=== PATIENT | female | born 1945 | race Caucasian/White ===

== ENCOUNTER 2016-12-03 08:04 | Inpatient (IN) | payer MEDICARE, OTHER ==
[2016-12-03] VITALS (13 sets, daily range): BP systolic 115–135; BP diastolic 65–83; PULSE 54–85; RESP 11–20; O2SAT 92–99
[~2016-12-03] VITALS: Ht 160 cm; Wt 75.3 kg
[2016-12-03] MEDS: Lactated Ringer's 1,000 ML IV SCH ×2 (05:00→10:12)
[~2016-12-03 08:04] MED LIST: CeFAZolin 2 Gm/50 mL D5W IV Premix IV ONE; HYDR12.5 PO; LISI-567 PO; METF1000 PO
--- NOTE | 2016-12-03 09:56 | PCM.HPANE ---
Patient Data Date of Service: Dec 03, 2016 Surgeon Admitting Provider: Attending Provider:Jen Sol MD Primary Care Physician:Aaron Pugh MD Other Provider:Luca Leary Anesthesia Reason for Visit Interstitial Pulmonary Disease Ht/WT & BMI Height (Feet): 5 Height (Inches): 3 Weight (Kilograms): 75.3 Body Mass Index 29.00 Allergies Coded Allergies: codeine (Verified Allergy, Unknown, nausea, vomiting, 11/28/16) Past Anesthesia History Anesthesia History: Denies:: Abnormal Airway, Anesthesia Reactions, Difficult Intubation, Fam Anesthesia Reaction Diabetes History Hx Diabetes?: Yes Type of Diabetes: Type II Glycemic Control: Oral Medication Current Bedside Blood Glucose: 87 MRSA MRSA: No Medications Hypertension Medication: Yes Home Meds Incl Beta Karla: No Reported Medications Metformin (Glucophage)1,000 Mg Tablet1,000 Mg PO BID Ref 0 11/28/16 Lisinopril 20 Mg [id number] Mg PO DAILY 30 Days Ref 0 11/28/16 Hydrochlorothiazide 12.5 Mg Zhjzgbk76.5 Mg PO DAILY 30 Days Ref 0 11/28/16 Discontinued Reported Medications Lisinopril 20 Mg Abvzxy12 Mg PO DAILY 30 Days Ref 0 02/06/16 Hydrochlorothiazide 12.5 Mg [id number] Mg PO DAILY 30 Days Ref 0 02/06/16 Metformin (Glucophage)1,000 Mg Tablet1,000 Mg PO BID Ref 0 02/06/16 Discontinued Scripts oxyCODONE-Acetaminophen 5-325 mg 1 Each Tablet1-2 Tab PO Q4H PRN For Severe Pain #30 TABLET Prov:Jen Sol MD 02/07/16 History History of ENT Problems?: No HEENT History: Denies:: Abnormal Airway Cataracts Difficult Intubation Dysphagia Glaucoma Hearing Problem Sinus Problem TMJ Hx of Heart Problems?: Yes Cardiovascular History: Positive for:: Hypertension Denies:: Cardiac Surgery Chest Pain Congestive Heart Failure Edema Heart Murmur Irregular Heartbeat Pacemaker Thrombophlebitis Hx of Respiratory Problem?: Yes Respiratory History: Positive for:: Pneumonia (recent hx spring 2015) Denies:: Asthma COPD Chest Surgery Dyspnea Emphysema Hemoptysis Tuberculosis Use of C-PAP Machine Use of Inhalers / NEBS Other Resp Pertinent History: interstitial pulmonary disease current admission problem Hx Neurologic Problems?: No Neurological History: Denies:: Alzheimer's Disease CVA Dementia Dizziness Headaches Multiple Sclerosis Parkinson's Disease Seizures Hx of GI Problems?: Yes Gastrointestinal History: Positive for:: Diverticulitis (hx of spring 2015) Gall Bladder Disease (removed ) Denies:: Gastroesphageal Reflux Gastrointestinal Bleeding Heartburn Hepatitis Hiatal Hernia Rectal Bleeding Hx of Problems?: No Genitourinary History: Denies:: HX of Hemodialysis Kidney Stones Urinary Tract Infection HX of Peritoneal Dialysis: No Female Hx: Denies:: Currently (post menopausal ) Endometriosis Pelvic Inflammatory Problems with Breasts? Skin History: Denies:: History Skin Disorders? Pressure Ulcers Hx Musculoskeletal Problems?: Yes Musculoskeletal History: Positive for:: Osteoarthritis (comes and goes ) Denies:: Back Injury Fibromyalgia Joint Replacement Musculoskeletal Trauma Myasthenia Gravis Hx of Psycho/Social Problems?: No Psycho Social History: Denies:: Anxiety Bipolar Disorder Hx Depression Suicide Attempt Hx Surgeries?: Yes (gallbladder) Hx Any Other Health Problems?: Yes Other History: Positive for:: Hospitalization (for gallbladder 5 years ago) Denies:: Cancer (pre cancerous cervix ) Thyroid Disease History Blood Transfusions: Positive for:: Accept Blood Products? Denies:: Blood Transfusions Hx Diabetes: YesBedside Blood Glucose: 87 Hx Alcohol Use: YesAlcoholic Drinks Per Day: 2 drinks weeklyHx Substance Use: No Smoking Status: Former Smoker Have You Smoked inLast 12 mo: No Stop/Bang S-Snoring: Do You Snore Loudly: Yes T-Tired: feel tired, fatigued: Yes O-Obsered: Observed not breath: No P-Blood Pressure: treated: Yes B- Body Mass Index > 35 kg/m2: No A- Age over 50: Yes N- Neck Large Circumference: No G- Gender Male: No YARA Total Score: 4 Risk Assessment Category Category 1A: Patient has history of documented sleep apnea, and HAS NOT received any narcotic, sedative or anesthesia administration during this stay. Category 1B: Patient has history of documented sleep apnea, and HAS received any narcotic , sedative or anesthesia administration during this stay Category 2: Patient has SUSPECTED Obstructive Sleep Apnea, and HAS received any narcotic , sedative or anesthesia administration during this stay. Category 3: Patient has SUSPECTED Obstructive Sleep Apnea and HAS NOT received narcotic, sedative or anesthesia administration during this stay. Category 4: Outpatient in Procedural Areas with known sleep apnea or who screen positive for High Risk via the STOP/BANG questionnaire. Exam Exam Vital Signs Vital Signs Date Time Temp Pulse Resp B/P Pulse Ox O2 Delivery O2 Flow Rate FiO2 12/03/16 08:42 36.1 55 16 131/83 95 Room Air General Appearance: Alert, Oriented X3, Cooperative, No Acute Distress HEENT/AIRWAY: MP 2 Lungs: Clear to Auscultation, Normal Air Movement Heart: Exam Unremarkable, Regular Rate/Rhythm, Murmur (I/ systolic at LUSB) Meds/Labs/Diagnostics Bedside Blood Glucose: 87 Plan Impression Patient chart reviewed, patient interviewed and anesthestic plan with risks, benefits, and alternatives discussed, and informed consent obtained. NPO Status: 1/3 ASA Physical Status: ASA2 Mod Systemic Disease Anesthetic Support Modalities: Arterial Line Anesthetic Plan: GA Bene/Risks/Altern/Consents: Yes HP Complete Prior to Induction: Yes Valdez Montoya MD Dec 03, 2016 09:56
[2016-12-03] MEDS ORDERED: Bupivacaine-MPF 0.5% W/EPI 30 mL Inj INFILTRATE ONE (10:12)
[2016-12-03] MEDS ORDERED: Lactated Ringer's 1,000 ML IV SCH (11:33)
[2016-12-03] MEDS ORDERED: Lactated Ringer's 500 ML IV PRN (11:33)
[2016-12-03] MEDS ORDERED: HYDROmorphone 1 mg/mL Inj IVPUSH PRN (11:35)
[2016-12-03] MEDS ORDERED: hydrALAZINE 20 mg/mL Inj IVPUSH PRN (11:35)
[2016-12-03] MEDS ORDERED: MetoCLOpramide 5 mg/mL 2 mL Inj IVPUSH PRN ×2 (11:35→12:05)
[2016-12-03] MEDS ORDERED: EPHEDrine Sulfate 50 mg/mL Inj IVPUSH PRN (11:35)
[2016-12-03] MEDS ORDERED: Bupivacaine Liposome 1.3% 20 mL Inj ONE (11:35)
[2016-12-03] MEDS ORDERED: Atropine 0.4 mg/mL Inj IVPUSH PRN (11:35)
[2016-12-03] MEDS ORDERED: Phenylephrine 10,000 mCg/mL Inj IVPUSH PRN (11:35)
[2016-12-03] MEDS ORDERED: Ondansetron 2 mg/mL 2 mL Inj IVPUSH PRN ×2 (11:35→12:05)
[2016-12-03] MEDS ORDERED: Labetalol 5 mg/mL 4 mL Inj IV PRN (11:35)
[2016-12-03] MEDS ORDERED: Sodium Chloride LOK Flush 10 mL Syringe IVFLUSH PRN (12:05)
[2016-12-03] MEDS: Acetaminophen IV 1,000 MG in IV Premix 1 EACH IV SCH ×2 (12:05→18:05)
[2016-12-03] MEDS: Dextrose 5% Lactated Ringer's 1,000 ML IV SCH ×2 (12:05→15:57)
--- NOTE | 2016-12-03 12:06 | PCM.ANEP1 ---
Post Anesthesia Phase 1 PACU Phase 1 Assessment Date of Service: Dec 03, 2016 Vital Signs 35.9 118/58 60 11 97% FM Anesthetic Administered: GA Level of Alertness: Sleeping, hard to arouse REYES's with Equal Strength: Yes Pain: No Nausea or Vomiting: No Oxygen Delivery: Simple Mask Lungs: Clear to Auscultation, Normal Air Movement Valdez Montoya MD Dec 03, 2016 12:06
--- NOTE | 2016-12-03 12:13 | PCM.SURGOP ---
Surgical Operative Report Date of Service: Dec 03, 2016 Pre Operative Diagnosis Interstitial lung disease Post Operative Diagnosis Interstitial lung disease Procedure: Thoracoscopic right pulmonary biopsies of the right upper, middle, and lower lobes of the lung. Surgeon and [employer] Haz[employer] Tanker Driver: Surgeon: Jen Sol M.D. 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 She was seen by her chrome plater helper, Dr. Valdez, who recommended thoracoscopic biopsies for diagnostic purposes. Findings: A single biopsy of each lobe of the right lung was performed, each was approximately 1 cm x 2 cm in size. No pulmonary focal abnormalities were visualized during the procedure. Procedure Details The patient was brought to the operating room and placed in supine position. An arterial line was placed. A double-lumen endotracheal tube was placed. He was repositioned in left lateral decubitus position with a beanbag and all pressure points appropriately padded. Antibiotics were infused. SCDs and a warming blanket were placed. The operative field was prepped and draped in sterile fashion. A pause was performed to confirm the correct patient, procedure, site, and side. Access to the chest was performed through an 11 mm incision at the level of the inframammary crease at the midaxillary line. An 11 mm port was inserted. Two additional ports were placed. The first was at approximately the 9th interspace at the anterior axillary line, and the 3rd was the most posterior at approximately the 9th intercostal space as well. The right middle lobe was grasped and a 3.8 mm endoscopic stapler was fired with a SeamGuard. The specimen was 2 x1 cm in size. The process was repeated on the right upper lobe, which required two firings of the stapler, producing a 2 cm x 1 cm specimen. Finally, the right lower lobe was grasped and the stapler was fired to produce a specimen that was also 2 cm x 1 cm. Hemostasis was confirmed visually. 0.5% marcaine was injected at all port sites in the intercostal space and skin; Liposomal bupivacaine 20 mL was theninjected, distributing it between the three rib spaces for three port sites for postoperative analgesia. A chest tube was placed, entering at the most anterior port site, and proceeding toward the posterior aspect of the thoracic cavity to the apex. It was sutured into position and the right lung was reinflated. The port sites were closed in two layers using 3-0 Vicryl for the muscle and subcutaneous tissue and 4-0 Monocryl for the skin. The chest tube stitch was placed, including a 2-0 Ethibond and a 2-0 nylon. Sterile dressings were then placed and the patient was awakened and taken to the postoperative care unit in good condition. Complications There were no periprocedural complications identified. Surgical Specimen Removed: Yes Specimen sent to Pathology: Yes Surgical Specimen description: Portion of the right upper, middle, and lower lobe of the lung. Anesthetic Plan: GA Grafts, Implants: None Output, Estimated Blood Loss: 2 (ml) Blood Administration during [place]: No Jen Sol MD Dec 03, 2016 12:13
[2016-12-03] MEDS: fentaNYL-PF 50 mCg/mL 2 mL Inj IVPUSH PRN ×2 (12:25→12:30)
[2016-12-03 12:38] LABS: Mean Corpuscular Hemoglobin 27.3 pg (27.0-35.0); Mean Corpuscular Volume 87.2 fL (81-100)
--- NOTE | 2016-12-03 13:08 | DRSVH ---
PROCEDURE: X-RAY CHEST ONE VIEW, PORTABLE ([id number]) INDICATIONS: 71 year-old female status post vacuum assisted thoracoscopic surgery with lung biopsy an d chest tube placement. TECHNIQUE: One view of the chest was acquired. COMPARISON: [facility], CT, CT CHEST WO CON, 10/21/2016, 16:39. [facility], CR, XR CHEST 2VW, 08/26/2016, 16:47. [facility], CR, XR CHEST 2VW, 02/20/2016, 16:38. [facility], CR, CHEST 1VW (PORTABLE), 01/04/2007, 2:39. FINDINGS: Surgical changes and devices: New right apical pleural drain is present and in expected position. Pat ient is status post cholecystectomy. Lungs and pleura: No pleural effusions or pneumothorax. Bibasilar airspace opacities persist. Mediastinum: Mediastinal contours appear normal. Heart size is normal. Bones and chest wall: No suspicious bony lesions. Overlying soft tissues appear unremarkable. IMPRESSION: 1. Right apical chest tube is in expected position; no pneumothorax. 2. Persistent bibasilar airspace opacities may be consistent with bronchopneumonia. Dictated by: Miki Stevens M.D. on 12/03/2016 at 13:07 Approved by: Miki Stevens M.D. on 12/03/2016 at 13:07
[2016-12-03] MEDS ORDERED: EPHEDrine/NS 5 mg/mL 5 mL Syringe ONE (13:33)
[2016-12-03] MEDS ORDERED: Dexamethasone 4 mg/mL Inj ONE (13:33)
[2016-12-03] MEDS ORDERED: Ondansetron 2 mg/mL 2 mL Inj ONE (13:33)
[2016-12-03] MEDS ORDERED: Propofol 10,000 mCg/mL 20 mL Inj ONE (13:33)
[2016-12-03] MEDS ORDERED: fentaNYL-PF 50 mCg/mL 2 mL Inj ONE (13:33)
[2016-12-03] MEDS ORDERED: Lidocaine 4% 4 mL Laryng-O-Jet Top Soln ONE (13:33)
[2016-12-03] MEDS ORDERED: Glycopyrrolate 0.2 mg/mL 5 mL Inj ONE (13:33)
[2016-12-03] MEDS ORDERED: Phenylephrine/NS 100 mCg/mL 10 mL Syringe IVPUSH ONE (13:33)
[2016-12-03] MEDS ORDERED: Neostigmine 1 mg/mL 5 mL Inj ONE (13:33)
--- NOTE | 2016-12-03 14:27 | PCM.ANEP2 ---
Post Anesthesia Evaluation ASA/CMS Post Anesthesia Date of Service: Dec 03, 2016 VS in Patient's Normal Range?: Yes Resp Stable; Airway Patent?: Yes CV Function & Hydration Stable: Yes Mental Status Recovered?: Yes Pain control Satisfactory?: Yes N/V Control Satisfactory?: Yes Valdez Montoya MD Dec 03, 2016 14:27
[2016-12-03] MEDS: oxyCODONE-Acetamin 5-325 mg Tablet PO PRN ×2 (15:18→21:14)
[2016-12-03] MEDS: Heparin 5,000 Unit/mL Inj SUBQ SCH (17:24)
--- NOTE | 2016-12-03 19:02 | NUR ---
POST OP ADMIT Patient arrived to unit at 1340, via gurney, able to scoot into bed with minimal assistance. transported by Johana LEAL, Report taken by phone by Min LEAL. Main focus has been pain management. Positional changes in addition to medications have been effective.Tolerated clear liquids, full liquids and now on general diet.
--- NOTE | 2016-12-03 22:00 | NUR ---
Case Management: COS to Inpatient. IMM explained to patient at 0, signed copy in chart, copy given to patient. All questions answered. Julienne Bond RN
[2016-12-04] MEDS: Dextrose 5% Lactated Ringer's 1,000 ML IV SCH ×2 (00:35→13:05)
[2016-12-04] MEDS: Heparin 5,000 Unit/mL Inj SUBQ SCH ×3 (00:42→16:22)
[2016-12-04] MEDS: oxyCODONE-Acetamin 5-325 mg Tablet PO PRN ×4 (00:52→14:33)
--- NOTE | 2016-12-04 02:45 | NUR ---
Pain pt has pain in her chest when she breathes that she rates a 7/10. she has been taking PO percocet for her pain and it reduces it to a 4-5/10 which she says is tolerable. she knows she has IV morphine available for breakthrough pain but has denied the need for it. pt has been encouraged to cough and deep breathe as well as use her incentive spirometer. she is reluctant to perform pulmonary toileting exercises due to pain. continual encouragement is needed. pt was unable to ambulate in the hallway. she said just getting up to the [facility] was much more painful then she imagined it would be. will attempt to encourage ambulation again this AM. hourly rounding continues. Addendum: 12/04/16 at 0703 by SKIP BEAUCHAMP RN pt reports feeling much improved this AM. she was able to get out of bed without assistance and ambulate to the bathroom. steady on her feet and she did not become SOB while off the oxygen. she states that she feels up to ambulating in the hallways today. care continues.
[2016-12-04 06:14] VITALS: BP 118/74; PULSE 51; RESP 17; O2SAT 100
[2016-12-04 07:38] LABS: Mean Corpuscular Hemoglobin 28.4 pg (27.0-35.0); Mean Corpuscular Volume 87.5 fL (81-100)
[2016-12-04] MEDS ORDERED: POLY17PO6 PO (08:28)
[2016-12-04] MEDS ORDERED: OXYC1TAB24 PO (08:28)
[2016-12-04] MEDS: Polyethylene Glycol (PEG) 17 Gm Powder PO SCH (08:30)
--- NOTE | 2016-12-04 09:18 | PCM.PNSURG ---
Subjective Visit Information: Reason for Visit Interstitial Pulmonary Disease Surgery/Surgery Date LUNG BIOPSY/ RIGHT VATS 12/03/16 Post-Op Day # Date of Admission: Dec 03, 2016 at 13:32 Hospital Day # Subjective: CXR shows a well expanded lung this am. Chest tube had a total of 140mL of serosanguinous fluid out since surgery. No air leak. She is smiling and eating a regular breakfast. Objective Vital Sign- Last 8 Hours Date Time Temp Pulse Resp B/P Pulse Ox O2 Delivery O2 Flow Rate FiO2 12/04/16 06:14 36.4 51 17 118/74 100 Nasal Cannula 2.00 Intake and Output- Last 8 Hour 12/04/16 Cumulative From/Thru 07:00 11/28/16 08:16 - 12/04/16 06:42 Intake Total 1795 ml 2645 ml Output Total 400 ml 727 ml Balance 1395 ml 1918 ml Intake Oral 800 ml 850 ml IV Total 995 ml 1795 ml Output Urine Total 400 ml 650 ml Chest Tube Drainage Total 75 ml Estimated Blood Loss 2 ml General: Alert, Oriented X3, No Acute Distress Lungs: Other (clear on L, soft crackles on R) Result Diagram: 12/04/16 0715 12/04/16 0715 Assessment & Plan Impression 71yof with interstitial lung disease POD#1 thoracoscopic wedge biopsies of the R lung. No air leak, minimal fluid in chest tube, CXR without PTX. Problems: Plan Water seal chest tube today at 0800 CXR at noon, possible discontinuation of tube Likely discharge to home later this afternoon. Jen Sol MD Dec 04, 2016 09:18
[2016-12-04 09:32] VITALS: BP 137/65; PULSE 65; RESP 16; O2SAT 94
--- NOTE | 2016-12-04 09:38 | DRSVH ---
PROCEDURE: X-RAY CHEST ONE VIEW ([id number]) INDICATIONS: CHEST TUBE TECHNIQUE: One view of the chest was acquired. COMPARISON: [facility], CR, XR CHEST 1VW (PORTABLE), 12/03/2016, 12:20. FINDINGS: Surgical changes and devices: Right chest tube is stable. Lungs and pleura: There is a persistent appearance of bilateral opacities, minimally improved in the left base. No visualized pneumothorax. Mediastinum: Mediastinal contours appear normal. Heart size is normal. Bones and chest wall: No suspicious bony lesions. Overlying soft tissues appear unremarkable. IMPRESSION: Bibasilar opacities, appearing slightly improved as above. No pneumothorax. Dictated by: Bertha Renodn M.D. on 12/04/2016 at 9:27 Approved by: Bertha Rendon M.D. on 12/04/2016 at 9:27
[2016-12-04] MEDS ORDERED: Bacitracin Zinc 15 Gm Ointment TOPICAL SCH (12:40)
[2016-12-04 13:15] VITALS: BP 124/73; PULSE 64; RESP 18; O2SAT 91
--- NOTE | 2016-12-04 13:54 | PCM.PROC ---
Procedure Note Date of Service: Dec 04, 2016 Pre Procedure Diagnosis: Interstitial lung disease Post Procedure Diagnosis: Same Procedure: Right Chest tube removal Provider and Junk Dealer: Ama Louise Indication for Procedure: Decreased drainage, No PTX Findings: NONE Procedural Analgesia: NONE Procedure Details: Procedure explained to patient. Patient took deep breath and coughed, no A/L in Pleurovac. Patient was placed in left side lying position. Dressing taken down. [place] stitch cut. Patient took deep breath and on sustained inspiration CT pulled. CT stitch tied, bacitracin and 4 X 4 placed on site. Secured with 2" plastic tape. No complications. Tolerated well Specimen: NONE Post Procedure Plan: Per Dr. Ebenezer Louise,Ama Monique PA-C Dec 04, 2016 13:54
--- NOTE | 2016-12-04 15:17 | DRSVH ---
PROCEDURE: X-RAY CHEST ONE VIEW ([id number]) INDICATIONS: chest tube on ws TECHNIQUE: One view of the chest was acquired. COMPARISON: [facility], CR, XR CHEST 1VW, 12/04/2016, 5:18. FINDINGS: Surgical changes and devices: Right-sided chest tube is present. Lungs and pleura: Bilateral interstitial opacities are prominent within the bases without interval ch ramirez compared to prior exam. No pneumothorax. Mediastinum: Mediastinal contours appear normal. Heart size is normal. Bones and chest wall: No suspicious bony lesions. Overlying soft tissues appear unremarkable. IMPRESSION: Stable interval exam compared to 12/04/16 at 5:18 AM. Dictated by: Bertha Rendon M.D. on 12/04/2016 at 15:15 Approved by: Bertha Rendon M.D. on 12/04/2016 at 15:15
--- NOTE | 2016-12-04 18:24 | NUR ---
PAIN Chest tube removed this shift, patient tolerated well. Pain managed with Percocet x2 tabs, morphine used for breakthrough pain. Ambulated with aide, 2 "laps" around unit. Tolerating general diet. Encouraged fluids throughout shift.
[2016-12-04 19:47] VITALS: BP 107/66; PULSE 57; RESP 18; O2SAT 95
[2016-12-05] MEDS: oxyCODONE-Acetamin 5-325 mg Tablet PO PRN ×2 (00:07→10:34)
[2016-12-05] MEDS: Heparin 5,000 Unit/mL Inj SUBQ SCH ×2 (00:11→09:01)
[2016-12-05] MEDS: Dextrose 5% Lactated Ringer's 1,000 ML IV SCH (01:35)
--- NOTE | 2016-12-05 03:53 | NUR ---
pain pt taking 2 percocet for pain and still requiring IV morphine for breakthrough pain. ambulating to the bathroom independently, minimally SOB with exertion. dressing at prior chest tube site has dried serous-sanguineous blood but no new leakage from this shift. care continues.
[2016-12-05 04:46] VITALS: BP 157/79; PULSE 67; RESP 16; O2SAT 94
[2016-12-05] MEDS: Polyethylene Glycol (PEG) 17 Gm Powder PO SCH (08:30)
--- NOTE | 2016-12-05 08:33 | PCM.DISURG ---
Surgical Discharge Instruction Date of Service Dec 05, 2016 Dates of Hospitalization Date of Hospital Admission Dec 03, 2016 at 13:32 Providers Admitting Physician: Jen Sol MD Primary Care Physician: Aaron Pugh MD Attending Physician: Jen Sol MD Discharge Diagnosis Post Operative diagnosis Interstitial lung disease Diet Discharge Diet: No restrictions Activity Discharge Activity-General: Be up and about, Other (Activity as tolerated.) Dressing and Incisional Care Dressing Care: Allow Steri Stripes to fall off, Remove outer dressing after 24 hrs Hygiene: May shower, DO NOT soak incision under water Additional Instructions Discharge Instructions You may take ibuprofen up to 600mg every 6 hours for pain in addition to oxycodone. Take a laxative with oxycodone to avoid constipation. Follow Up Plan Follow Up Plan F/U with Dr. Sol in 2 weeks. Jen Sol MD Dec 05, 2016 08:33
--- NOTE | 2016-12-05 09:04 | DRSVH ---
PROCEDURE: X-RAY CHEST ONE VIEW ([id number]) INDICATIONS: chest tube removal TECHNIQUE: One view of the chest was acquired. COMPARISON: 12/04/[id number] hrs. FINDINGS: Surgical changes and devices: Right-sided pleural drain has been removed. Small amount of subcutaneou s emphysema. Cholecystectomy clips. Lungs and pleura: No pleural effusions or pneumothorax. Irregular rounded radiodensity is present in the right midlung field. Bilateral lower lobe atelectasis/infiltrate appears slightly improved on th e right, unchanged on the left. Mediastinum: Mediastinal contours appear normal. Heart size is normal. Bones and chest wall: No suspicious bony lesions. Overlying soft tissues appear unremarkable. IMPRESSION: 1. Focal density in the right midlung field above the minor fissure, possible rounded atelectasis. 2. Bibasilar left greater than right atelectasis/infiltrate, slight interval improvement. 3. Interval removal of right sided chest tube. No apparent pneumothorax. Dictated by: Al Wayne M.D. on 12/05/2016 at 9:02 Approved by: Al Wayne M.D. on 12/05/2016 at 9:02
--- NOTE | 2016-12-05 10:44 | NUR ---
Discharge Patient DC to home with family friend. All DC education and instructions given to patient at time of DC. Prescriptions given at time of DC.
--- NOTE | 2016-12-05 11:44 | PCM.DC.SUR ---
Discharge Summary Date of Service: Date of Hospital Admission: Dec 03, 2016 at 13:32 Date of Operation(s): 12/03/2016 Date of Discharge: 12/05/2016 Diagnosis at Time of Discharge Primary diagnosis: Interstitial lung disease Other diagnoses: 1. Pneumonitis 2. Diverticulitis 3. Hypertension 4. 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 She was seen by her c4 planner, Dr. Valdez, who recommended thoracoscopic biopsies for diagnostic purposes. Consultants: None Hospital Course: The patient was admitted and underwent the above-mentioned operation without complication. Chest tube was able to be removed the following day. The patient was stable for discharge on her second postsurgical day. Pathology: Pending Disposition: The patient was discharged on her second postsurgical day. Follow-up Plan: She will follow-up in the office with Dr. Sol in 2 weeks. Hydrochlorothiazide (Hydrochlorothiazide) 12.5 Mg Capsule 12.5 MG PO DAILY ( Reported) Lisinopril (Lisinopril) 20 Mg Tablet 20 MG PO DAILY (Reported) Metformin (Glucophage) 1,000 Mg Tablet 1,000 MG PO BID (Reported) Polyethylene Glycol 3350 (Miralax) 17 Gm Powd.pack 17 GM PO DAILY PRN PRN For Constipation oxyCODONE-Acetaminophen 5-325 mg (oxyCODONE-Acetaminophen 5-325 mg) 1 Each Tablet 1-2 TAB PO Q4H PRN PRN For Severe Pain copies to: Aaron Pugh MD; Yun Valdez MD, Fred H PA-C Dec 05, 2016 11:44
--- NOTE | 2016-12-05 14:53 | PATH ---
SURGICAL PATHOLOGY Attending Physician:Jen Sol MD CASE STATUS: Signed Out PATIENT NAME: YNES RAO PID: [id number] : 1945 DATE COLLECTED:12/03/2016 19:32 SPECIMEN: 1: Lung, Wedge Biopsy 2: Lung, Wedge Biopsy 3: Lung, Wedge Biopsy CLINICAL HISTORY: INTERSTITIAL LUNG DISEASE 1). RIGHT MIDDLE LOBE, OUT 11:28 FORMALIN 11:29 2). RIGHT UPPER LOBE, OUT 11:30 FORMALIN 11:30 3). RIGHT LOWER LOBE, OUT 11:33 FORMALIN 11:34 FINAL DIAGNOSIS: 1.RIGHT MIDDLE LOBE LUNG, WEDGE BIOPSY: INTERSTITIAL PNEUMONIA, SEE COMMENT. 2.RIGHT UPPER LOBE LUNG, WEDGE BIOPSY: INTERSTITIAL PNEUMONIA, SEE COMMENT. 3.RIGHT LOWER LOBE LUNG, WEDGE BIOPSY: INTERSTITIAL PNEUMONIA, SEE COMMENT. ICD10 code J84.9 NOTE: This case is being sent to the [facility] for pulmonary pathology consultation and further classification of the interstitial pneumonia process. An addendum will be issued with the consultation findings. GROSS DESCRIPTION: The specimens are received in formalin, labeled with the patient's name, and sublabeled as the following: (1) right middle lobe; (2) right upper lobe; (3) right lower lobe. (1) The specimen consists of a wedge of lung (0.9 g, 3.8 x 1.5 x 0.6 cm). The resection margin is received stapled. The staple line is removed before weighing. The pleura is ribeiro smooth and shiny. The parenchyma is ribeiro with focal pallor. No nodules, masses or lesions are identified. Ink code: black-resection margin. Section code: (1A-1C) lung wedge, serially sectioned. Specimen entirely submitted. (2) The specimen consists of a wedge of lung (1.6 g, 5.0 x 1.5 x 0.8 cm). The resection margin is received stapled. The staple line is removed before weighing. The pleura is pale ribeiro smooth and shiny. The parenchyma is ribeiro with focal pallor. No nodules, masses or lesions are identified. Ink code: black-resection margin. Section code: (2A-2C) lung wedge, serially sectioned. Specimen entirely submitted. (3) The specimen consists of a wedge of lung (0.4 g, 3.1 x 0.7 x 0.5 cm). The resection margin is received stapled. The staple line is removed before weighing. The pleura is pale ribeiro smooth and shiny. The parenchyma is ribeiro with focal pallor. No nodules, masses or lesions are identified. Ink code: black-resection margin. Section code: (3A) lung wedge, serially sectioned. Specimen entirely submitted. 12/04/16 MICRO DESCRIPTION: 1. 3. Sections are of pulmonary parenchyma with a marked increase in macrophages in alveolar spaces. There is patchy mild thickening of alveolar septa and more diffuse loss of alveolar septa resulting in enlarged alveolar spaces. There is a patchy mild interstitial lymphoplasmacytic infiltrate. No malignant infiltrate identified. ICD-9 CODES: CPT CODES: 1: 40727 2: 58679 3: 89753 PROCEDURE/ADDENDA: Addendum SPI Addendum Diagnosis {Not Entered} Addendum Comment The slides from this case were sent to the [facility] Anatomic Pathology Department for further classification of the pathology in the lung biopsy. 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 Mild fibrosis in areas of tissue consolidation. No evidence of granulomatous inflammation or neoplasm. Please see [facility] report for further comments on these findings. Electronically Signed Out Pat Cameron MD Electronically Signed Out Pat Cameron MD [facility] Pathology [facility] [address], [place] [address] Technical component performed at [facility], [facility] [address], [place], [address]
== END 2016-12-05 10:39 | disposition home or self-care (01) | DRG 168 ==
LOC: SAS 08:04 → OSC 13:32 → SAS 13:32
PROVIDERS: ADMIT Surgery; ATTEND Surgery
PROC: 0BBC4ZX Excision of Right Upper Lung Lobe, Percutaneous Endoscopic Approach, Diagnostic (ICD-10-PCS; 2016-12-03)
PROC: 0BBF4ZX Excision of Right Lower Lung Lobe, Percutaneous Endoscopic Approach, Diagnostic (ICD-10-PCS; 2016-12-03)
PROC: 0BBD4ZX Excision of Right Middle Lung Lobe, Percutaneous Endoscopic Approach, Diagnostic (ICD-10-PCS; principal; 2016-12-03 10:30)
PROC: 0BPKX0Z Removal of Drainage Device from Right Lung, External Approach (ICD-10-PCS; 2016-12-04)
DX: J84.9 Interstitial pulmonary disease, unspecified (principal); I10 Essential (primary) hypertension; E11.9 Type 2 diabetes mellitus without complications; Z87.891 Personal history of nicotine dependence